=== PATIENT | male | born 1985 | race African-American/Black ===

== ENCOUNTER 2017-10-02 09:27 | Emergency (ER) | payer OTHER ==
[2017-10-02 09:38] VITALS: BP 147/98
--- NOTE | 2017-10-02 09:48 | ER Document Report ---
HPI - HPI Patient complains to provider of: Avulsion right thumb Onset: Just prior to arrival Onset/Duration: Sudden Pain Level: 3 Context: 32-year-old male was slicing sweet potatoes to make sweet potato chips and cut the radial side of the right thumb soft tissue off completely. Tetanus is not current. He does not take anticoagulants he was able to stop the bleeding with direct pressure at home Associated Symptoms: None Exacerbated by: Denies Relieved by: Denies Similar symptoms previously: No Recently seen / treated by doctor: No - ROS ROS below otherwise negative: Yes Systems Reviewed and Negative: Yes All other systems reviewed and negative Past Medical History - General Information source: Patient - Social History Smoking Status: Unknown if Ever Smoked Frequency of alcohol use: None Drug Abuse: None Lives with: Family Family History: None - Medical History Medical History: Negative Surgical Hx: Negative Vertical Provider Document - CONSTITUTIONAL Agree With Documented VS: Yes Exam Limitations: No Limitations - INFECTION CONTROL TRAVEL OUTSIDE OF THE [place] IN LAST 30 DAYS: No - MUSCULOSKELETAL/EXTREMETIES Musculoskeletal/Extremeties: MAEW, FROM, Tender - Avulsion 1 cm x 5 mm radial right thumb tip, sliver of nail cut to. Base of wound is subcutaneous tissue but I am checking x-ray just in case - NEURO Level of Consciousness: Alert - DERM Integumentary: Laceration Course - Re-evaluation Re-evalutation: 10/02/17 11:14 No bony defect, had to use quick clot dressing to stop the bleeding 10/02/17 11:14 10/02/17 11:17 X-ray negative per radiologist - Vital Signs Vital signs: Temp Pulse Resp BP Pulse Ox 98.1 F 86 22 H 147/98 H 98 10/02/17 09:34 10/02/17 09:34 10/02/17 09:34 10/02/17 09:34 10/02/17 09:34 Discharge - Discharge Clinical Impression: Soft tissue avulsion right thumb Condition: Good Disposition: HOME, SELF-CARE Instructions: Acetaminophen, Antibiotic Ointment Protection ([facility]), Avulsion Injury ([facility]), Ibuprofen (General) ([facility]), Tetanus Immunization Given ([facility]) Additional Instructions: Keep this dressing on for 2 days Trim the quick clot gauze closer to the wound after you remove the dressing Watch for signs and symptoms of infection, red, hot, pus, increased pain. Quick clot will fall off when the wound heals underneath of it Return to the emergency room any concerns or infection Prescriptions: Ibuprofen [Motrin 800 mg Tablet] 800 mg PO Q8HP PRN #30 tablet PRN Reason:
[2017-10-02] MEDS ORDERED: DIPH/PERTUSS(ACELL)/TETANUS VAC/PF 0.5 ML SYR (>=10YO) IM ONE (10:10)
--- NOTE | 2017-10-02 11:15 | RADIOLOGY REPORT (SQ) ---
EXAM DESCRIPTION: FINGER RIGHT COMPLETED DATE/TIME: 10/02/2017 10:49 am REASON FOR STUDY: thumb COMPARISON: None. NUMBER OF VIEWS: Three views. TECHNIQUE: AP, lateral, and oblique images acquired of the right thumb. LIMITATIONS: None. FINDINGS: MINERALIZATION: Normal. BONES: No acute fracture or dislocation. No worrisome bone lesions. SOFT TISSUES: No soft tissue swelling. No foreign body. OTHER: No other significant finding. IMPRESSION: No acute fracture right thumb. TECHNICAL DOCUMENTATION: JOB ID: [id number] [employer]- All Rights Reserved Reading location - IP/workstation name: [email or web address]
[2017-10-02] MEDS ORDERED: IBUPROFEN 800 MG TABLET PO ONE (11:18)
[2017-10-02] MEDS ORDERED: ACETAMINOPHEN 325 MG TABLET PO ONE (11:18)
== END 2017-10-02 11:27 | disposition home or self-care (01) ==
LOC: ER 09:27
DX: S61.101A Unspecified open wound of right thumb with damage to nail, initial encounter (principal); W45.8XXA Other foreign body or object entering through skin, initial encounter; Y93.G9 Activity, other involving cooking and grilling
CPT/HCPCS: 90471; 90715; 99283